=== PATIENT | male | born 1980 | race Caucasian/White ===

== ENCOUNTER → 2017-01-01 | Outpatient (CLI) | payer MEDICARE ==
--- NOTE | 2017-01-01 20:29 | MR ---
EXAMINATION TYPE: MR brain wo con DATE OF EXAM: 01/01/2017 COMPARISON: 04/23/2012 HISTORY: 36-year-old male Demyelinating disease of central nervous system TECHNIQUE: Multiplanar, multisequence images of the brain and brainstem were acquired without IV con trast. Diffusion weighted imaging is performed. FINDINGS: No evidence for acute infarction, hemorrhage, mass, mass effect, midline shift, herniation, effacemen t of basal cisterns, or extra-axial fluid collection. The ventricles and sulci are age-appropriate. Major intracranial flow voids are intact. T2/FLAIR weighted sequences show no white matter signal abnormality. Midline structures demonstrate normal morphology. The craniocervical junction is normal. The visualized sinuses are clear and the globes are intact. IMPRESSION: No intracranial abnormality seen. No specific findings of demyelinating disease.
== END | disposition home or self-care (01) ==
LOC: RADMRIMAIN 15:28
PROVIDERS: ATTEND Psychiatry & Neurology Neurology
DX: G37.8 Other specified demyelinating diseases of central nervous system (principal)
CPT/HCPCS: 70551

== ENCOUNTER → 2017-10-08 | Outpatient (CLI) | payer MEDICARE ==
--- NOTE | 2017-10-08 14:00 | CT ---
EXAMINATION TYPE: CT soft tissue neck w con DATE OF EXAM: 10/08/2017 COMPARISON: Correlation MRI cervical spine 08/12/2014 HISTORY: 36-year-old male localized enlarged lymph nodes, complains of posterior neck mass and swelli ng. Red and painful to touch TECHNIQUE: Contiguous axial scanning of the soft tissues of the neck performed with IV Contrast, jeanine ent injected with 100 mL of Isovue 300. Coronal/sagittal reconstructions performed. CT DLP: 733 mGycm Automated exposure control for dose reduction was used. FINDINGS: Visualized intracranial structures orbits and globes, paranasal sinuses, and mastoid air cells appear clear. Nasopharynx appears clear. Mild lingual tonsillar hypertrophy is noted as well as mild bilateral palatine tonsillar hypertrophy. Epiglottis and prevertebral soft tissues are within normal limits. The glottic and subglottic structures as well as the tracheal column and visualized upper lungs are c lear. Thyroid gland shows no gross abnormal mobility. The submandibular and parotid glands appear satisfact ory. Scattered prominent but nonenlarged upper cervical lymph nodes measuring up to 9 mm on the left and 8 mm on the right. No cervical lymphadenopathy by CT size criteria. 2 palpable markers are present posteriorly along the neck demarcating the superior and inferior cindy ns of the patient's palpable abnormality. Underlying the palpable marker, there is a fat density lesi on measuring 4.8 cm wide by 2.6 cm craniocaudal by 1.4 cm AP overlying the left paramedian superficia l fascia. On the 2015 MRI, this measured 4.5 x 2.6 x 1.3 cm, not significantly changed. Some internal strandy density is present along the medial aspect which is also unchanged. Bones: No osseous destructive process. IMPRESSION: BB'S INDICATING THE PALPABLE FINDING ALONG THE LEFT PARAMEDIAN POSTERIOR NECK. THERE IS A FAT DENSITY MASS MEASURING 4.8 X 2.6 CM ALONG THE SUPERFICIAL FASCIA HERE THAT WAS PRESENT BACK IN 2015. 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
== END ==
LOC: RADCTMAIN 10:59
PROVIDERS: ATTEND Family Medicine
DX: R59.0 Localized enlarged lymph nodes (principal)
CPT/HCPCS: 70491; Q9967

== ENCOUNTER 2018-05-30 15:36 | Emergency (ER) | payer MEDICARE ==
[2018-05-30] MEDS ORDERED: KETOROLAC 30 MG/ML 1 ML VIAL IM STA (18:17)
[2018-05-30 18:53] VITALS: RESP 16
--- NOTE | 2018-05-30 18:53 | XR ---
Thoracic spine 3 views. History pain. Fell down the stairs. Comparison none. FINDINGS: Thoracic vertebra have normal alignment. Disc spaces are fairly normal. There is no paraspinal mass. Posterior elements appear intact. IMPRESSION: Negative thoracic spine exam.
--- NOTE | 2018-05-30 18:54 | XR ---
EXAMINATION TYPE: XR chest 2V DATE OF EXAM: 05/30/2018 COMPARISON: NONE HISTORY: Short of breath TECHNIQUE: Frontal and lateral views of the chest are obtained. FINDINGS: Heart and mediastinum are normal. Lungs are clear. Diaphragm is normal. Bony thorax appear s normal. IMPRESSION: Normal chest
--- NOTE | 2018-05-30 18:56 | CT ---
EXAMINATION TYPE: CT brain jarrett wo con DATE OF EXAM: 05/30/2018 COMPARISON: 02/24/2011 HISTORY: Fall, posterior head injury and neck pain. CT DLP: 1659.5 mGycm Automated exposure control for dose reduction was used. TECHNIQUE: CT scan of the head and cervical spine are performed without contrast. FINDINGS: Ventricles and sulci appear normal. There is no mass effect nor midline shift. There is n o sign of intracranial hemorrhage. The calvarium is intact. There is mild straightening of the cervical vertebra. Disc spaces are normal. Posterior elements are intact. Skull base is intact. Facet joints appear intact. IMPRESSION: Negative CT scan of the brain. Negative CT scan of the cervical spine.
--- NOTE | 2018-05-30 19:02 | ED ---
General Adult HPI - General Chief complaint: Fall Stated complaint: FALL DOWN 5 STEPS, HEAD, BACK INJURY Time Seen by Provider: 05/30/18 16:35 Source: patient, RN notes reviewed Mode of arrival: ambulatory Limitations: no limitations - History of Present Illness Initial comments: This is a 37-year-old male who presents emergency Department complaining that he fell down 5 steps. Patient states he slipped on the first step and hit his back and slid down the rest per patient states he also hit his head he was not dazed and did not lose consciousness. Patient states he does have a headache now he does have some midline neck tenderness per patient denies any new numbness or weakness in the upper extremities or lower extremities. Patient states he also has some posterior left sided rib pain from the fall. Patient denies any lumbar pain. Patient denies any abdominal pain. Patient denies any decreased range of motion of the upper or lower extremities. Patient denies any pain in the extremities. Denies any sites of bleeding. - Related Data Home Medications Medication Instructions Recorded Confirmed Gabapentin 800 mg PO TID 03/09/15 05/30/18 SUMAtriptan SUCCINATE [Imitrex] 100 mg PO DAILY PRN 03/09/15 05/30/18 DULoxetine HCL [Cymbalta] 60 mg PO HS 05/30/18 05/30/18 Gabapentin [Neurontin] 100 mg PO HS 05/30/18 05/30/18 Gemfibrozil [Lopid] 600 mg PO AC-BID 05/30/18 05/30/18 Previous Rx's Medication Instructions Recorded Ibuprofen [Motrin] 600 mg PO Q6HR PRN #20 tab 05/30/18 Allergies Allergy/AdvReac Type Severity Reaction Status Date / Time No Known Allergies Allergy Verified 05/30/18 18:28 Review of Systems ROS Statement: Those systems with pertinent positive or pertinent negative responses have been documented in the HPI. ROS Other: All systems not noted in ROS Statement are negative. Past Medical History Additional Past Medical History / Comment(s): guillain-barre syndrome, migraines History of Any Multi-Drug Resistant Organisms: None Reported Past Surgical History: No Surgical Hx Reported Additional Past Surgical History / Comment(s): mass removal from neck Past Psychological History: No Psychological Hx Reported Smoking Status: Never smoker Past Alcohol Use History: None Reported Past Drug Use History: None Reported General Exam - General Exam Comments Initial Comments: GENERAL: Patient is well-developed and well-nourished. Patient is nontoxic and well- hydrated and is in mild distress. ENT: Neck is soft and supple. No significant lymphadenopathy is noted. Oropharynx is clear. Moist mucous membranes. EYES: The sclera were anicteric and conjunctiva were pink and moist. Extraocular movements were intact and pupils were equal round and reactive to light. Eyelids were unremarkable. PULMONARY: Unlabored respirations. Good breath sounds bilaterally. No audible rales rhonchi or wheezing was noted. CARDIOVASCULAR: There is a regular rate and rhythm without any murmurs gallops or rubs. Patient has some posterior left rib pain. Patient does have some slight tenderness at C2. ABDOMEN: Soft and nontender with normal bowel sounds. No palpable organomegaly was noted. There is no palpable pulsatile mass. SKIN: Skin is clear with no lesions or rashes and otherwise unremarkable. NEUROLOGIC: Patient is alert and oriented x3. Cranial nerves II through XII are grossly intact. Motor and sensory are also intact. Normal speech, volume and content. Symmetrical smile. MUSCULOSKELETAL: Normal extremities with adequate strength and full range of motion. No lower extremity swelling or edema. No calf tenderness. LYMPHATICS: No significant lymphadenopathy is noted PSYCHIATRIC: Normal psychiatric evaluation. Limitations: no limitations Course Vital Signs 05/30/18 05/30/18 16:35 18:52 Temperature 98.2 F Pulse Rate 81 72 Respiratory 18 16 Rate Blood Pressure 129/79 117/79 O2 Sat by Pulse 97 96 Oximetry Medical Decision Making - Medical Decision Making Patient's chest x-ray shows no acute abnormality. CT of the brain and C-spine showed no acute abnormalities. T-spine shows no acute abnormalities. I went back into reevaluate the patient he at this time was only complaining of the posterior left rib cage pain. Patient is still able to breathing was oxygenating well. Patient states the Toradol helped a little. Disposition Clinical Impression: Chest wall pain Disposition: HOME SELF-CARE Condition: Good Instructions (If sedation given, give patient instructions): Chest Wall Pain ( ED) Prescriptions: Ibuprofen [Motrin] 600 mg PO Q6HR PRN #20 tab PRN Reason: For pain Is patient prescribed a controlled substance at d/c from ED?: No Referrals: Allen Husain MD [Primary Care Provider] - 1-2 days Time of Disposition: 20:19
[2018-05-30 20:34] VITALS: BP 117/76; PULSE 74; TEMP 97.8
== END 2018-05-30 20:35 | disposition home or self-care (01) ==
LOC: EC 15:36
DX: R07.9 Chest pain, unspecified (principal); S09.90XA Unspecified injury of head, initial encounter; S39.92XA Unspecified injury of lower back, initial encounter; Z98.890 Other specified postprocedural states; Z79.899 Other long term (current) drug therapy; W10.9XXA Fall (on) (from) unspecified stairs and steps, initial encounter
CPT/HCPCS: 72070; 71046; 72125; 70450; 99284; 96372; J1885

== ENCOUNTER → 2023-04-25 | Outpatient (CLI) | payer MEDICARE ==
--- NOTE | 2023-04-27 07:04 | MR ---
EXAMINATION TYPE: MR brain and iac wo/w con DATE OF EXAM: 04/25/2023 COMPARISON: CT brain May 30, 2018 HISTORY: Left hearing loss, body weakness TECHNIQUE: Multiplanar, multisequence images of the brain and brainstem along with internal auditory canals are performed without and with IV contrast, utilizing 13.5 mL intravenous Gadavist . FINDINGS: Diffusion weighted images demonstrate no evidence of a recent infarct or other diffusion ab normality. There is no extra-axial fluid collection or significant white matter signal abnormality. The ventricular system and cisternal spaces are normal in size and appearance. The brain volume is age appropriate. Midline structures demonstrate normal morphology. The craniocervical junction appears within normal limits. Post contrast images demonstrate no abnormal enhancement. The dural venous sinuses appear pa tent. The visualized sinuses are clear and the globes are intact. Abnormal fluid signal is seen in the mastoid air cells bilaterally. The vestibulocochlear complexes a re symmetric and felt within normal limits. There is no suspicious enhancing cerebellopontine angle m ass identified bilaterally. IMPRESSION: New abnormal fluid signal in the bilateral mastoid air cells raises concern for bilateral mastoiditis, correlate clinically.
== END | disposition home or self-care (01) ==
LOC: RADMRIMAIN 05:41
PROVIDERS: ATTEND Otolaryngology
DX: H90.42 Sensorineural hearing loss, unilateral, left ear, with unrestricted hearing on the contralateral side (principal); R53.1 Weakness
CPT/HCPCS: 70553; A9585

== ENCOUNTER → 2024-02-08 | Outpatient (CLI) | payer MEDICARE ==
--- NOTE | 2024-02-08 16:43 | CT ---
EXAMINATION TYPE: CT iac wo con CT DLP: 150 mGycm, Automated exposure control for dose reduction was used. 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 COMPARISON: CT brain C-spine 05/30/2018, MR brain and IAC 04/25/2023. TECHNIQUE: Multiple thin axial images were obtained through the temporal bones and internal auditory canals. Additional coronal reformatted images were obtained. No IV contrast was utilized. FINDINGS: Right Temporal Bone: External Ear: The external auditory canal is unremarkable, The tympanic membrane is present and unrem arkable. Middle Ear: The ossicles demonstrate a normal appearance. Prussak's space is clear and the scutum i s intact. There is no evidence of osseous erosion and the tegmen tympani is intact. Inner Ear: Cochlea, vestibule and semi circular canals are unremarkable. No evidence of carotid chiki l dehiscence. Two and a half turns of the cochlea are identified. The vestibular aqueduct is not enl arged. Mastoid Air Cells: The mastoid air cells are clear. The tegmen mastoideum is intact. The aditus ad an trum is clear. Internal Auditory Canal: The internal auditory canal is unremarkable. Left Temporal Bone: External Ear: The external auditory canal is unremarkable, The tympanic membrane is present and unrem arkable. Tympanostomy tube identified. Middle Ear: The ossicles demonstrate a normal appearance. Prussak's space is clear and the scutum i s intact. There is no evidence of osseous erosion and the tegmen tympani is intact. Inner Ear: Cochlea, vestibule and semi circular canals are unremarkable. No evidence of carotid chiki l dehiscence. Two and a half turns of the cochlea are identified. The vestibular aqueduct is not enl arged. Mastoid Air Cells: The mastoid air cells are clear. The tegmen mastoideum is intact. The aditus ad an trum is clear. Internal Auditory Canal: The internal auditory canal is unremarkable. IMPRESSION: No acute internal auditory canal process identified. Resolution of previously demonstrated left masto id effusion. [facility], , 02/08/2024 4:09 PM
== END | disposition home or self-care (01) ==
LOC: RADCTMAIN 15:35
PROVIDERS: ATTEND Otolaryngology
DX: H70.12 Chronic mastoiditis, left ear (principal)
CPT/HCPCS: 70480